=== PATIENT | female | born 1995 | race Caucasian/White ===

== ENCOUNTER 2020-03-19 17:36 | Emergency (ER) | payer OTHER, SELFPAY ==
--- NOTE | 2020-03-19 17:44 | DI.RAD.S_ITS ---
PROCEDURE: XR KNEE RT 1TO2V INDICATIONS: heard a pop unable to bear weight TECHNIQUE: 2 views of the knee were acquired. COMPARISON: None. FINDINGS: Bones: No fractures or dislocations. No suspicious bony lesions. Soft tissues: No joint effusion. No suspicious soft tissue calcifications. IMPRESSION: No acute right knee fracture or dislocation. No joint effusion. Dictated by: Carlos Mares M.D. on 03/19/2020 at 17:25 Approved by: Carlos Mares M.D. on 03/19/2020 at 17:25
--- NOTE | 2020-03-19 19:57 | ED_ITS ---
HPI - Extremity Injury (Lower) <RITIKA Govea - Last Filed: 03/19/20 22:08> General Chief Complaint: Extremity Injury, Lower Stated Complaint: RIGHT KNEE INJURY Time Seen by Provider: 03/19/20 19:47 Source: patient Mode of arrival: Wheelchair History of Present Illness HPI Narrative: 24yo female presents emergency department for right knee pain. Patient states a few weeks ago she injured her knee on an aircraft and was diagnosed with an MCL sprain versus tear. She states last night she went to stand up and heard a pop in her knee and her knee gave out. She reports increased pain. Patient states she is unable to bear weight due to pain, straightening and bending her knee cause significant pain. She reports some swelling. Denies any trauma to the knee, hip pain, ankle pain, past surgeries, nausea, vomiting, diarrhea, or any other concerns. Review of Systems <RITIKA Govea - Last Filed: 03/19/20 22:08> Review of Systems Narrative: REVIEW OF SYSTEMS: GENERAL: Denies fever or chills. HENT: No head trauma. CARDIOVASCULAR: No chest pain. RESPIRATORY: No cough. GASTROINTESTINAL: No nausea. MUSCULOSKELETAL: Complains of right knee pain, see HPI. INTEGUMENTARY: No rash, lesions, or pruritus. NEURO: No numbness, tingling. PSYCH: No behavior or mood changes. Patient History <RITIKA Govea - Last Filed: 03/19/20 22:08> Medical History No significant medical problems (Acute) Social History Smoking Status: Never smoker Smoking Status: Never smoker Exam <RITIKA Govea - Last Filed: 03/19/20 22:08> Initial Vital Signs Initial Vital Signs: PHYSICAL EXAMINATION: GENERAL: Well groomed, alert, and cooperative. Answers questions promptly and appropriately. Vital signs noted. HENT: Normocephalic, atraumatic. EYES: Symmetrical, sclera white, no periorbital swelling. CARDIOVASCULAR: Regular rate. RESPIRATORY: Normal respiratory rate, trachea midline, airway patent. No stridor, nasal flaring or accessory muscle use. MUSCULOSKELETAL: Tenderness to palpation of right patella, negative drawer sign, pain with stress on MCL, small effusion noted. No significant erythema, decreased extension and flexion due to pain. Normal gait and coordination. Equal tone and mass bilaterally. EXTREMITIES: CMS intact. No pedal edema. SKIN: Warm, dry, soft, appropriate color for ethnicity. No lesions, rashes, or wounds. NEURO: Alert and Oriented X 3. No sensory deficits. PSYCH: Appropriate affect and mood. Course <RITIKA Govea - Last Filed: 03/19/20 22:08> Orders Ordered: ED Orders 03/19/20 17:44 XR knee RT 1to2V Stat Discontinued Medications Ketorolac Tromethamine (Toradol) 30 mg IM NOW ONE Stop: 03/19/20 19:56 Last Admin: 03/19/20 20:02 Dose: 30 mg Documented by: MABEL <Blayne Huynh DO - Last Filed: 03/19/20 22:20> Orders Ordered: ED Orders 03/19/20 17:44 XR knee RT 1to2V Stat Discontinued Medications Ketorolac Tromethamine (Toradol) 30 mg IM NOW ONE Stop: 03/19/20 19:56 Last Admin: 03/19/20 20:02 Dose: 30 mg Documented by: MABEL MDM - Extremity Injury (Lower) <RITIKA Govea - Last Filed: 03/19/20 22:08> Medical Records Attestation: I reviewed the patient's medical records. Lab Data Attestation: I reviewed the patient's lab results. Imaging Data Extremity x-ray #1: Radiologist's Impression: [address] [address] XRay Report Signed Patient: Debbie Claire PMR#: [id number] : 1995Acct:[id number] Age/Sex: 24 / FDate of Service: 03/19/20 Loc: ED Accession Number: [id number] Procedure: XR knee RT 1to2V Ordering Provider: Blayne Huynh D.O. PROCEDURE: XR KNEE RT 1TO2V INDICATIONS: heard a pop unable to bear weight TECHNIQUE: 2 views of the knee were acquired. COMPARISON: None. FINDINGS: Bones: No fractures or dislocations. No suspicious bony lesions. Soft tissues: No joint effusion. No suspicious soft tissue calcifications. IMPRESSION: No acute right knee fracture or dislocation. No joint effusion. Dictated by: Carlos Mares M.D. on 03/19/2020 at 17:25 Approved by: Carlos Mares M.D. on 03/19/2020 at 17:25 [facility] Narrative Medical decision making narrative: History and examination concerning for right knee injury. Differential includes meniscus injury versus ligament injury. Less likely fracture given negative x-ray. Less likely infection, lack of erythema or swelling. Brace given, crutches offered, patient declined at this time as she states she has them at home. Return precautions given for new or worsening symptoms. Patient agreed to plan of care verbalized understanding. Discharge Plan Departure Patient Disposition: Home Clinical Impression: Injury of knee Qualifiers: Encounter type: initial encounter Laterality: right Qualified Code(s): S89.91XA - Unspecified injury of right lower leg, initial encounter Discharge Date/Time: 03/19/20 20:11 Instructions: Meniscal Tear Activity Restrictions/Additional Instructions: Thank you for entrusting me with your care today. As discussed, your x-rays negative for any fractures. We have given you a brace, I suggest wearing this brace for a brace with a hinged to prevent your knee from giving out. Each time your knee gives out a can cause more damage. Please follow-up with orthopedic listed below, call tomorrow to schedule an appointment as further evaluation testing is indicated. Return emergency department for any new or worsening symptoms such as chest pain, syncope, high fevers, or any other concerns. Referrals: Crispin Massey MD [Physician] - <Blayne Huynh DO - Last Filed: 03/19/20 22:20> [facility] Dr Huynh Co-Sign Statement: I was available for consultation during this patient's emergency department visit. This chart is signed by myself for administrative purposes only. I did not have direct contact with this patient during this visit. They were seen independently by the APC.
[2020-03-19] MEDS: KETOROLAC 60 MG/2 ML VIAL 30 MG IM (20:02)
== END 2020-03-19 20:11 | disposition home or self-care (01) ==
PROVIDERS: Emergency Provider Nurse Practitioner
DX: S89.91XA Unspecified injury of right lower leg, initial encounter (principal); X50.0XXA Overexertion from strenuous movement or load, initial encounter
CPT/HCPCS: 73560; 96372; 99283; 99284; J1885

== ENCOUNTER 2021-08-17 13:15 | Emergency (ER) | payer OTHER, SELFPAY ==
--- NOTE | 2021-08-17 13:30 | DI.RAD.S_ITS ---
PROCEDURE: XR KNEE RT 3V INDICATIONS: injury TECHNIQUE: 3 views of the knee were acquired. COMPARISON: [facility], CR, XR KNEE RT 1TO2V, 03/19/2020, 18:05. FINDINGS: Bones: No fractures or dislocations. No suspicious bony lesions. Soft tissues: Small joint effusion. No suspicious soft tissue calcifications. IMPRESSION: Right knee without acute fracture or dislocation. Small joint effusion. If there are persistent symptoms or clinical suspicion for pathology, then repeat radiographs or advanced imaging (CT or MRI) may be considered for further evaluation. Dictated by: John Richmond M.D. on 08/17/2021 at 13:26 Approved by: John Richmond M.D. on 08/17/2021 at 13:28
[2021-08-17 13:40] VITALS: BP 116/61; PULSE 94; RESP 18; TEMP 37.1; O2SAT 96; BMI 28.1
--- NOTE | 2021-08-17 13:55 | PC.NURSE ---
Patient reports patellar dislocation in December 2021; repeat injury when stepping onto Right leg on Wednesday, then again tweaked it Wednesday when stepping out of a vehicle.
--- NOTE | 2021-08-17 14:19 | ED_ITS ---
HPI - Extremity Injury (Lower) <Olu Anderson PA-C - Last Filed: 08/17/21 19:37> General Chief Complaint: Extremity Injury, Lower Stated Complaint: Right knee injury. hx of reoccuring injuries Time Seen by Provider: 08/17/21 13:43 Source: patient Mode of arrival: Family Vehicle History of Present Illness HPI Narrative: Patient is a 26-year-old female presenting to the emergency department today for evaluation right knee pain. Patient states that she frequently experiences recurring injuries to the right knee dating back to February of 2020. She states that back in February 2020 she injured her right knee on aircraft and was diagnosed with an MCL sprain versus tear. She states that since that time she has experienced consistent discomfort in the right knee. Patient explains that 2 days ago she was getting out of her boyfriend's truck when she felt her right knee give way, stating that she experienced a similar episode yesterday as well. She states that she attempted to apply ice to the painful area and took her usual medications including meloxicam and an unspecified muscle relaxer. However, her symptoms not improved. She denies fever, chills, chest pain, cough, shortness of breath, nausea, vomiting, diarrhea, abdominal pain, dysuria, hematuria, or any other concerning symptoms. No further concerns were reported at this time. Related Data Previous Rx's Medication Instructions Recorded oxycodone 5 mg capsule 5 mg PO DAILY #10 cap 08/17/21 Allergies Allergy/AdvReac Type Severity Reaction Status Date / Time iodine Allergy Verified 08/17/21 13:39 Review of Systems <Olu Anderson PA-C - Last Filed: 08/17/21 19:37> Constitutional Constitutional: Denies chills, Denies fatigue, Denies fever(s), Denies frequent falls, Denies lethargy and Denies weakness Eyes Eyes: Denies loss of vision ENT Ears, Nose, Mouth, and Throat: Denies dizziness and Denies neck pain Cardiovascular Cardiovascular: Denies chest pain, Denies irregular heart rhythm, Denies lightheadedness, Denies palpitations, Denies dyspnea, Denies dyspnea on exertion and Denies orthopnea Respiratory Respiratory: Denies cough, Denies dyspnea, Denies dyspnea on exertion and Denies wheezing Gastrointestinal Gastrointestinal: Denies abdominal pain, Denies change in bowel habits, Denies diarrhea, Denies nausea and Denies vomiting Genitourinary Genitourinary: Denies hematuria, Denies flank pain, Denies urinary incontinence and Denies urinary urgency Musculoskeletal Musculoskeletal: Denies back pain, Reports arthralgias (Right knee), Denies muscle weakness, Denies neck pain, Denies numbness and Denies tingling Integumentary/Breasts Skin/Breast: Denies pruritus, Denies erythema, Denies rash and Denies wounds Neurologic Neurologic: Denies behavioral changes, Denies confusion, Denies dizziness, Denies frequent falls, Denies loss of vision, Denies numbness, Denies tingling and Denies weakness Psychiatric Psychiatric: Denies behavioral changes and Denies confusion Endocrine Endocrine: Denies fatigue and Denies palpitations Allergic/Immunologic Allergic/Immunologic: Denies wheezing Patient History <Olu Anderson PA-C - Last Filed: 08/17/21 19:37> Medical History (Updated 08/17/21 @ 14:54 by Olu Anderson PA-C) No significant medical problems Social History Smoking Status: Current every day smoker Smoking Status: Current every day smoker tobacco type: e-cigarettes alcohol intake frequency: 0-2 drinks per day Substance Use Type: does not use Exam <Olu Anderson PA-C - Last Filed: 08/17/21 19:37> Narrative Exam Narrative: GENERAL: 26 year old patient appears stated age. Well-developed patient, in mild distress. HEAD: Atraumatic. Normocephalic. EYES: Pupils equal round and reactive. Extraocular motions intact. No scleral icterus. No injection or drainage. ENT: Nose without bleeding, purulent drainage. Throat without erythema, tonsillar hypertrophy or exudate. Airway patent. NECK: Trachea midline. Non tender CARDIOVASCULAR: Regular rate and rhythm without murmurs, gallops, or rubs. RESPIRATORY: Clear to auscultation. Breath sounds equal bilaterally. No wheezes, rales, or rhonchi. GASTROINTESTINAL: Abdomen soft, non-tender, nondistended. EXTREMITIES: No edema. Tenderness to palpation appreciated generally about the right knee without significant swelling. Tenderness to palpation appreciated directly over the patella. Midline knee joint tenderness appreciated on the right, medial greater than lateral. No appreciable popliteal fullness bilaterally. Good sensation light touch appreciated throughout the bilateral lower extremities. Gross motor function intact throughout the bilateral lower extremities. BACK: Nontender without deformity or crepitance. No flank tenderness. NEURO: AOx3. SKIN: No rash or erythema of visible areas Initial Vital Signs Initial Vital Signs: Vital Signs Temperature 98.8 F 08/17/21 13:40 Pulse Rate 94 H 08/17/21 13:40 Respiratory Rate 18 08/17/21 13:40 Blood Pressure 116/61 08/17/21 13:40 Pulse Oximetry 96 08/17/21 13:40 <Anna Ballesteros DO - Last Filed: 08/18/21 07:35> Initial Vital Signs Initial Vital Signs: Vital Signs Temperature 98.8 F 08/17/21 13:40 Pulse Rate 94 H 08/17/21 13:40 Respiratory Rate 18 08/17/21 13:40 Blood Pressure 116/61 08/17/21 13:40 Pulse Oximetry 96 08/17/21 13:40 Course <Olu Anderson PA-C - Last Filed: 08/17/21 19:37> Course Course Narrative: X-ray of right knee obtained. Patient states that she is feeling improved following 5 mg of oral oxycodone on re-evaluation. Orders Ordered: Discontinued Medications Oxycodone HCl (Oxycodone Ir 5 Mg Tablet) 5 mg PO NOW ONE Stop: 08/17/21 14:18 Last Admin: 08/17/21 14:32 Dose: 5 mg Documented by: RORY Vital Signs Vital signs: Vital Signs - 8 hr 08/17/21 13:40 Temperature 98.8 F Pulse Rate 94 H Respiratory Rate 18 Blood Pressure 116/61 Pulse Oximetry 96 <Anna Ballesteros DO - Last Filed: 08/18/21 07:35> Orders Ordered: Discontinued Medications Oxycodone HCl (Oxycodone Ir 5 Mg Tablet) 5 mg PO NOW ONE Stop: 08/17/21 14:18 Last Admin: 08/17/21 14:32 Dose: 5 mg Documented by: RORY Vital Signs Vital signs: Vital Signs - 8 hr 08/17/21 13:40 Temperature 98.8 F Pulse Rate 94 H Respiratory Rate 18 Blood Pressure 116/61 Pulse Oximetry 96 MDM - Extremity Injury (Lower) <Olu Anderson PA-C - Last Filed: 08/17/21 19:37> Imaging Data Extremity x-ray #1: Radiologist's Impression: PROCEDURE:? XR KNEE RT 3V ? INDICATIONS:? injury ? TECHNIQUE:? 3 views of the knee were acquired.? ? COMPARISON:? [facility], CR, XR KNEE RT 1TO2V, 03/19/2020, 18:05. ? FINDINGS:? ? Bones:? No fractures or dislocations.? No suspicious bony lesions.? ? Soft tissues:? Small joint effusion.? No suspicious soft tissue calcifications.? ? ? IMPRESSION:? Right knee without acute fracture or dislocation.? Small joint effusion. ? If there are persistent symptoms or clinical suspicion for pathology, then repeat radiographs or advanced imaging (CT or MRI) may be considered for further evaluation. ? ? Dictated by: John Richmond M.D. on 08/17/2021 at 13:26 ? ? Approved by: John Richmond M.D. on 08/17/2021 at 13:28 MDM Narrative Medical decision making narrative: Differential diagnosis to consider but not limited to fracture versus dislocation versus sprain versus strain versus meniscus tear versus ligament rupture. Overall, x-ray imaging obtained in the emergency department today did not show any signs of acute abnormality that would require emergent intervention. I discussed findings of x-ray with patient informed her that it is important to follow-up with an central melt specialist for further imaging of the right knee. I agreed to prescribe the patient a short course of medications to help alleviate her pain. She states at this time she feels comfortable being discharged home and is stable for discharge. Strict return precautions discussed with patient prior to discharge. Discharge Plan Departure Patient Disposition: Home Clinical Impression: Chronic pain of right knee Instructions: DI for Knee Pain Activity Restrictions/Additional Instructions: *You have been diagnosed with chronic right knee pain *What to do: *Please continue to take your regular medications as directed. [ ] New medication prescriptions sent to your pharmacy: [ ] [X] New medication written as a paper prescription - Oxycodone [ ] No new medications given You were evaluated in the emergency department today for right knee pain. X-ray imaging obtained in the emergency department today did not show signs of acute abnormality. I recommend utilizing the knee braces that you have home to prevent further injury or pain. You can also continue to apply ice to the painful area as needed and keep the right lower extremity elevated to reduce inflammation. I prescribed you a short course of medications to help alleviate her discomfort. It is important that he follow up with Orthopedics for further imaging of the knee. Please follow-up with the primary care provider within the next 2-3 days for further evaluation. Please do not hesitate to return to the emergency department if you experience worsening knee pain, swelling of the knee, fever, numbness and tingling in lower extremities, or any other concerning symptoms. *Please follow up with your primary care provider in 2-3 days, call for an appointment. Let them know you were seen in the Emergency Department and that we ask that you be seen in follow up. We will electronically transmit a record of today's note if your PCP is in our system *If you do not have a primary care provider please contact the [facility] Resource line at [phone]. They will ask some questions about your medical history and help get you set up with a doctor in the community. *Return to Emergency Department if you should have any new, worsening or concerning symptoms, such as fever greater than 101 F, shaking chills, worsening pain, persistent vomiting or other bothersome symptoms. Prescriptions: New oxycodone 5 mg capsule 5 mg PO DAILY Qty: 10 0RF Referrals: Madhu Gilbert MD [Physician] - 5-7 days Stand Alone Forms: Work Release Note <Anna Ballesteros DO - Last Filed: 08/18/21 07:35> Cosign ED Attending [facility] Attestation: I was immediately available in the department for consultation. Documentation has been reviewed.
[2021-08-17] MEDS: OXYCODONE IR 5 MG TABLET PO (14:32)
== END 2021-08-17 15:25 | disposition home or self-care (01) ==
PROVIDERS: Emergency Provider Physician Assistant
DX: G89.29 Other chronic pain (principal); M25.561 Pain in right knee
CPT/HCPCS: 73562; 99283

== ENCOUNTER 2021-10-21 18:27 | Emergency (ER) | payer OTHER, SELFPAY ==
[2021-10-21 18:45] VITALS: BP 111/57; PULSE 61; RESP 18; TEMP 36.6; O2SAT 100; BMI 26.2
[2021-10-21 19:53] LABS: Add Manual Diff / Slide Review NO; Basophils Absolute Auto 0 /uL (0-100); Basophils Percent Auto 0.4 % (0-2); Eosinophils Absolute Auto 100 /uL (0-450); Eosinophils Percent Auto 1.1 % (2-4); Hematocrit 41.8 % (36-46); Hemoglobin 14.3 g/dL (12.0-16.0); Lymphocytes Absolute Auto 1700 /uL (1100-4500); Lymphocytes Percent Auto 26.4 % (25-40); Mean Corpuscular HGB Conc 34.2 % (30-36); Mean Corpuscular Hemoglobin 31.5 PG (26-34); Monocytes Absolute Auto 400 /uL (0-900); Monocytes Percent Auto 6.1 % (3-14); Neutrophils Absolute Auto 4200 /uL (1500-7000); Platelet Count 175 X10^3/uL (150-400); Red Blood Cell Count 4.54 X10^6/uL (4.0-5.2); Red Cell Distribution Width 13.2 % (11.6-14.8); White Blood Cell Count 6.3 X10^3/uL (4.5-11.0)
[2021-10-21 20:01] LABS: Alanine Aminotransferase 15 IU/L (<35); Albumin 4.5 g/dL (3.5-5.0); Albumin Globulin Ratio 1.3 (1.0-2.8); Alkaline Phosphatase 51 U/L (38-126); BUN Creatinine Ratio 15.3 (6-22); Bilirubin Total 1.2 mg/dL (0.2-1.3); Blood Urea Nitrogen 9 mg/dL (7-17); Calcium 8.4 mg/dL (8.4-10.2); Carbon Dioxide 24 mmol/L (22-32); Chloride 106 mmol/L (98-107); Estimated Glomerular Filt Rate > 60 mL/min (>60); Globulin 3.4 g/dL (1.7-4.1); Glucose 80 mg/dL (70-100); Lipase 77 U/L (23-300); Sodium 139 mmol/L (137-145); Total Protein 7.9 g/dL (6.3-8.2)
[2021-10-21 20:02] LABS: HEMOLYSIS 243 (0-50)
--- NOTE | 2021-10-21 22:00 | PC.NURSE ---
no active n/v/d upon arrival pt aao x 3 in nad
[2021-10-21 22:07] VITALS: PULSE 66; O2SAT 98
[2021-10-21 22:10] VITALS: BP 114/62; PULSE 67; O2SAT 100
[2021-10-21 22:25] LABS: COVID19 -Nasal RAPID Negative (Negative)
[2021-10-21 22:30] VITALS: BP 107/63; PULSE 66; O2SAT 100
--- NOTE | 2021-10-21 22:44 | ED_ITS ---
HPI - Nausea/Vomiting/Diarrhea General Chief complaint: Nausea/Vomiting/Diarrhea Stated complaint: EXPOSED TO COVID DIARRHEA HARD TIME BREATHING Time Seen by Provider: 10/21/21 22:44 Source: patient Mode of arrival: Ambulatory Limitations: no limitations History of Present Illness HPI Narrative: This is a 26-year-old female who comes emergency department complaint of nausea, vomiting and diarrhea for the past 30+ hours. Patient has had some fevers and chills. Some shortness of breath sensation. Describes some abdominal discomfort sort of suprapubically and in the left upper quadrant. Patient denies any back or flank pain. No dysuria urgency or frequency. No vaginal bleeding or discharge. Patient has not had any black or bloody stools. They do note that they had a co-worker that had respiratory symptoms that tested positive yesterday for coronavirus. Patient states they are otherwise healthy they do take medication for mood. Denies any major surgeries besides a biopsy of the toe for treatment of foot fungus. Related Data Previous Rx's Medication Instructions Recorded oxycodone 5 mg capsule 5 mg PO DAILY #10 cap 08/17/21 cephalexin 500 mg capsule 500 mg PO BID #10 cap 10/21/21 ondansetron 4 mg disintegrating 4 mg PO Q6H PRN #5 tab 10/21/21 tablet Allergies Allergy/AdvReac Type Severity Reaction Status Date / Time iodine Allergy Verified 08/17/21 13:39 Review of Systems Review of Systems ROS Unobtainable: All systems reviewed & are unremarkable except as noted in HPI and below Patient History Medical History (Updated 10/21/21 @ 23:40 by Anna Ballesteros DO) No significant medical problems Social History Smoking Status: Current every day smoker Smoking Status: Current every day smoker tobacco type: e-cigarettes alcohol intake frequency: 0-2 drinks per day Substance Use Type: does not use Exam Narrative Exam Narrative: GENERAL: Alert and oriented x three, female in mild distress. HEENT: Head normocephalic, atraumatic, EOMI, pupils reactive, face symmetric, moist mucous membranes NECK: Supple, full range of motion CARDIOVASCULAR: Regular rate and rhythm without murmurs, rubs or gallops. RESPIRATORY: Breath sounds equal bilaterally, no wheezes rales or rhonchi. ABDOMEN: Soft, mild generalized tenderness.Normoactive bowel sounds all 4 quadrants. No guarding or rebound, rigidity, no mass. : No CVA tenderness EXTREMITIES: Normal range of motion, no clubbing or edema. Neurovascularly intact NEUROLOGICAL: Cranial nerves II through XII grossly intact. Moving all extremities SKIN: Warm, dry, no petechiae, no rashes or lesions. Initial Vital Signs Initial Vital Signs: Vital Signs Temperature 97.8 F 10/21/21 18:45 Pulse Rate 61 10/21/21 18:45 Respiratory Rate 18 10/21/21 18:45 Blood Pressure 111/57 L 10/21/21 18:45 Pulse Oximetry 100 10/21/21 18:45 Course Orders Ordered: ED Orders 10/21/21 19:15 Complete Blood Count AUTO DIFF Stat Comprehensive Metabolic Panel Stat Lipase Stat 10/21/21 22:07 COVID19 -Nasal RAPID/Pre-Proc Stat 10/21/21 22:55 Urine Culture Stat Urine Microscopic Stat Discontinued Medications Cephalexin HCl (Cephalexin 250 Mg Capsule) 500 mg PO NOW ONE Stop: 10/21/21 23:41 Last Admin: 10/21/21 23:45 Dose: 500 mg Documented by: BILL Ketorolac Tromethamine (Ketorolac 30 Mg/Ml Vial) 15 mg IV NOW ONE Stop: 10/21/21 23:04 Last Admin: 10/21/21 23:10 Dose: 15 mg Documented by: BILL Ondansetron HCl (Ondansetron 4 Mg/2 Ml Inj) 4 mg IV NOW ONE Stop: 10/21/21 23:04 Last Admin: 10/21/21 23:10 Dose: 4 mg Documented by: BILL Ondansetron HCl (Ondansetron 4 Mg Odt) 4 mg SL NOW ONE Stop: 10/21/21 23:41 Last Admin: 10/21/21 23:45 Dose: 4 mg Documented by: BILL Vital Signs Vital signs: Vital Signs - 8 hr 10/21/21 22:07 10/21/21 22:10 10/21/21 22:30 Pulse Rate 66 67 66 Respiratory Rate Blood Pressure 114/62 107/63 Pulse Oximetry 98 100 100 10/21/21 23:00 10/21/21 23:30 Pulse Rate 63 52 L Respiratory Rate 16 Blood Pressure 109/52 L Pulse Oximetry 98 97 MDM - Nausea/Vomiting/Diarrhea Lab Data Result diagrams: 10/21/21 19:15 10/21/21 19:15 Labs: Lab Results 10/21/21 10/21/21 10/21/21 Range/Units 19:15 19:15 22:07 WBC 6.3 (4.5-11.0) X10^3/uL RBC 4.54 (4.0-5.2) X10^6/uL Hgb 14.3 (12.0-16.0) g/dL Hct 41.8 (36-46) % MCV 92.0 (80-100) fL MCH 31.5 (26-34) PG MCHC 34.2 (30-36) % RDW 13.2 (11.6-14.8) % Plt Count 175 (150-400) X10^3/uL Neut % (Auto) 66.0 (50-75) % Lymph % (Auto) 26.4 (25-40) % [place] % (Auto) 6.1 (3-14) % Eos % (Auto) 1.1 L (2-4) % Baso % (Auto) 0.4 (0-2) % Neut # (Auto) 4200 (0571-4886) /uL Lymph # (Auto) 1700 (8914-0768) /uL [place] # (Auto) 400 (0-900) /uL Eos # (Auto) 100 (0-450) /uL Baso # (Auto) 0 (0-100) /uL Sodium 139 (137-145) mmol/L Potassium TNP Chloride 106 (98-107) mmol/L Carbon Dioxide 24 (22-32) mmol/L BUN 9 (7-17) mg/dL Creatinine 0.59 (0.52-1.04) mg/dL Estimated GFR > 60 (>60) mL/min BUN/Creatinine Ratio 15.3 (6-22) Glucose 80 (70-100) mg/dL Calcium 8.4 (8.4-10.2) mg/dL Total Bilirubin 1.2 (0.2-1.3) mg/dL AST TNP ALT 15 (<35) IU/L Alkaline Phosphatase 51 (38-126) U/L Total Protein 7.9 (6.3-8.2) g/dL Albumin 4.5 (3.5-5.0) g/dL Globulin 3.4 (1.7-4.1) g/dL Albumin/Globulin Ratio 1.3 (1.0-2.8) Lipase 77 (23-300) U/L Urine RBC (0-5/HPF) Urine WBC (0-5/HPF) Ur Squamous Epith Cells (0-5/HPF) Urine Bacteria (None) Urine Mucus (Negative) Ur Culture Indicated? SARS-CoV-2 (PCR) Negative (Negative) 10/21/21 Range/Units 22:55 WBC (4.5-11.0) X10^3/uL RBC (4.0-5.2) X10^6/uL Hgb (12.0-16.0) g/dL Hct (36-46) % MCV (80-100) fL MCH (26-34) PG MCHC (30-36) % RDW (11.6-14.8) % Plt Count (150-400) X10^3/uL Neut % (Auto) (50-75) % Lymph % (Auto) (25-40) % [place] % (Auto) (3-14) % Eos % (Auto) (2-4) % Baso % (Auto) (0-2) % Neut # (Auto) (9506-8980) /uL Lymph # (Auto) (7402-5691) /uL [place] # (Auto) (0-900) /uL Eos # (Auto) (0-450) /uL Baso # (Auto) (0-100) /uL Sodium (137-145) mmol/L Potassium Chloride (98-107) mmol/L Carbon Dioxide (22-32) mmol/L BUN (7-17) mg/dL Creatinine (0.52-1.04) mg/dL Estimated GFR (>60) mL/min BUN/Creatinine Ratio (6-22) Glucose (70-100) mg/dL Calcium (8.4-10.2) mg/dL Total Bilirubin (0.2-1.3) mg/dL AST ALT (<35) IU/L Alkaline Phosphatase (38-126) U/L Total Protein (6.3-8.2) g/dL Albumin (3.5-5.0) g/dL Globulin (1.7-4.1) g/dL Albumin/Globulin Ratio (1.0-2.8) Lipase (23-300) U/L Urine RBC None seen (0-5/HPF) Urine WBC 1-5/hpf (0-5/HPF) Ur Squamous Epith Cells 1-5 /hpf (0-5/HPF) Urine Bacteria Many (>30) H (None) Urine Mucus 1+ H (Negative) Ur Culture Indicated? Culture not indicate SARS-CoV-2 (PCR) (Negative) Point of Care Testing Test Results Negative Urine Dip Bedside Urine Glucose Negative Bedside Urine Bilirubin - Negative Bedside Urine Ketone - Negative Urine Specific [place] 1.025 Bedside Urine Occult Blood - Negative Bedside Urine pH 6.0 Bedside Urine Protein - Negative Bedside Urine Urobilinogen - Negative Bedside Urine Nitrite - Negative Bedside Urine Leukocytes +/- 15 Esterase MDM Narrative Medical decision making narrative: This is a 26-year-old female comes emergency department with complaint of shortness of breath and nausea, vomiting and diarrhea. Patient has reassuring exam, labs reviewed. Discussed with patient plan for antinausea medication and re-evaluation within 24 hours if persistent symptoms or worsening abdominal pain. Patient was swab for coronavirus is negative but has had symptoms for just over 24 hours and was recommended to have repeat swab as needed. Patient's urine does show bacteria leukocyte esterase, she has had some frequency but no other symptoms. She has been afebrile. She does not any back or flank pain. She states she does get frequent UTIs so plan for Zofran, oral antibiotic and close follow-up. Discharge Plan Departure Patient Disposition: Home Clinical Impression: Nausea vomiting and diarrhea, UTI (urinary tract infection) Instructions: DI for Vomiting -- Adult Activity Restrictions/Additional Instructions: Follow-up if your symptoms are persisting over the next several days. Your swab for coronavirus today is negative but if this is obtained within the 1st day or so of symptoms can sometimes be a false negative. I would recommend being rechecked if you have persistent symptoms. You may take Zofran 1 tablet every 6 hours as needed for nausea/vomiting. Take antibiotics until completely gone. Prescription sent to [facility] in [employer]. Please return for persistent vomiting, passing out, new chest pain, worsening shortness of breath, black or bloody stools, worsening abdominal pain or other new or concerning symptoms. Prescriptions: New cephalexin 500 mg capsule 500 mg PO BID Qty: 10 0RF ondansetron 4 mg tablet,disintegrating 4 mg PO Q6H PRN (Reason: nausea and vomiting) Qty: 5 0RF No Action oxycodone 5 mg capsule 5 mg PO DAILY Qty: 10 0RF Stand Alone Forms: Work Release Note
[2021-10-21 23:00] VITALS: PULSE 63; O2SAT 98
[2021-10-21] MEDS: ONDANSETRON 4 MG/2 ML INJ IV (23:10)
[2021-10-21] MEDS: KETOROLAC 30 MG/ML VIAL 15 MG IV (23:10)
[2021-10-21 23:15] LABS: Bacteria Urine Many (>30); Mucus Urine 1+ (Negative); RBC Urine None Seen (0-5/HPF); Squamous Epithelial Cell Urine 1-5 /HPF (0-5/HPF); WBC Urine 1-5/HPF (0-5/HPF)
[2021-10-21 23:30] VITALS: BP 109/52; PULSE 52; RESP 16; O2SAT 97
[2021-10-21] MEDS: ONDANSETRON 4 MG ODT SL (23:45)
[2021-10-21] MEDS: cephALEXin 250 MG CAPSULE 500 MG PO (23:45)
== END 2021-10-21 23:59 | disposition home or self-care (01) ==
PROVIDERS: Emergency Provider Emergency Medicine
DX: R11.2 Nausea with vomiting, unspecified (principal); R19.7 Diarrhea, unspecified; R06.02 Shortness of breath; R10.12 Left upper quadrant pain; N39.0 Urinary tract infection, site not specified; Z20.822 Contact with and (suspected) exposure to COVID-19
CPT/HCPCS: 80053; 81003; 81015; 81025; 83690; 85025; 87086; 87635; 96374; 96375; 99284; C9803; J1885; J2405

== ENCOUNTER 2021-11-19 13:56 | Emergency (ER) | payer OTHER, SELFPAY ==
[2021-11-19 14:24] VITALS: BP 117/72; PULSE 78; RESP 18; TEMP 36.6; O2SAT 100; BMI 26.6
[2021-11-19 15:56] LABS: Bacteria Urine Moderate (10-30); Culture Indicated Urine Specimen Cultured; RBC Urine None Seen (0-5/HPF); Squamous Epithelial Cell Urine 1-5 /HPF (0-5/HPF); WBC Urine 1-5/HPF (0-5/HPF)
--- NOTE | 2021-11-19 17:23 | DI.CT.S_ITS ---
PROCEDURE: CT KIDNEY URETER BLADDER (KUB) INDICATIONS: left flank pain, hx nephrolithiasis, +UTI TECHNIQUE: Axial sections were acquired from the lung bases to the pubic symphysis. Coronal and sagittal reformats were performed. For radiation dose reduction, the following was used: automated exposure control, adjustment of mA and/or kV according to patient size. COMPARISON: [facility], CT, CT KUB, 08/08/2019, 12:46. FINDINGS: Image quality: Excellent. Lung bases: Lung bases are clear. Heart: No significant findings. URINARY: Right Kidney: No stones or hydronephrosis. No perinephric stranding. Right Ureter: No hydroureter. No ureteral stone. Left Kidney: No stones or hydronephrosis. No perinephric stranding. Left Ureter: No hydroureter. No ureteral stone. Bladder: Normal wall thickness. No stones. ABDOMEN: Liver: Unremarkable. Gallbladder: Unremarkable. Biliary ducts: Unremarkable. Pancreas: Unremarkable. No peripancreatic inflammation. Spleen: Unremarkable. Adrenal Glands: Unremarkable. Stomach and Bowel: Stomach, small bowel loops, and colon are unremarkable. Normal appendix. Peritoneum: No abnormal intraperitoneal fluid. No free air. Ventral Wall: No hernia. Abdominal Nodes: No enlarged retroperitoneal or mesenteric lymph nodes. Vessels: Aorta and inferior vena cava are normal in size. PELVIS: Pelvic Organs: Unremarkable. An IUD is noted within the endometrial cavity. Pelvic Nodes: Unremarkable. Miscellaneous: No inguinal hernias are seen. Bones: Unremarkable. IMPRESSION: CT abdomen and pelvis without acute abnormalities. Specifically, no evidence for urolithiasis or obstructive uropathy. Normal appendix. Dictated by: John Richmond M.D. on 11/19/2021 at 17:44 Approved by: John Richmond M.D. on 11/19/2021 at 17:49
--- NOTE | 2021-11-19 17:40 | ED_ITS ---
HPI - Female Genitourinary <RITIKA Fisher - Last Filed: 11/19/21 20:54> General Chief complaint: Urogenital-Female Stated complaint: KIDNEY STONES Time Seen by Provider: 11/19/21 17:16 Source: patient Mode of arrival: Ambulatory History of Present Illness HPI Narrative: This is a 26-year-old female who presents to the emergency department for left flank pain since last night. Patient states that she has nausea, denies vomiting, endorses on and off symptoms of dysuria for approximately three weeks but did not have any fever, vomiting, other worsening symptoms. She was seen in the emergency department on 10/21/2021 for nausea vomiting diarrhea and a UTI Keflex, I medication and Zofran and states that she got better but then all of a sudden last night she got worse. She states that she had kidney stones on the left side in 2019, she states this feels similar. She denies any blood in her urine, she denies any diarrhea or stool changes. She denies any history of allergies to antibiotics, only topical iodine. Patient endorses abnormal vaginal discharge and painful intercourse. She has an IUD in place. Related Data Previous Rx's Medication Instructions Recorded oxycodone 5 mg capsule 5 mg PO DAILY #10 cap 08/17/21 cephalexin 500 mg capsule 500 mg PO BID #10 cap 10/21/21 ondansetron 4 mg disintegrating 4 mg PO Q6H PRN #5 tab 10/21/21 tablet fluconazole 150 mg tablet 150 mg PO .q3da PRN #2 tab 11/19/21 metronidazole 500 mg tablet 500 mg PO BID 7 Days #14 tab 11/19/21 sulfamethoxazole 800 1 tab PO BID 7 Days #14 tab 11/19/21 mg-trimethoprim 160 mg tablet (Bactrim DS) Allergies Allergy/AdvReac Type Severity Reaction Status Date / Time iodine Allergy Verified 08/17/21 13:39 Review of Systems <RITIKA Fisher - Last Filed: 11/19/21 20:54> Review of Systems Narrative: General: denies fever, chills Head/Neck: denies headache, neck pain Eyes: denies visual changes, eye pain Cardio: denies chest pain, palpitations Respiratory: denies shortness of breath, cough GI: denies abdominal pain, nausea, vomiting, or diarrhea : Endorses mild dysuria and left flank pain, also endorses abnormal vaginal discharge and dysparenuia MSK: denies new joint pain, muscle weakness or swelling Skin: denies rash, itching or wound Neuro: denies numbness, tingling, dizziness Patient History <RITIKA Fisher - Last Filed: 11/19/21 20:54> Medical History No significant medical problems tobacco type: vaping alcohol intake frequency: 0-2 drinks per day Substance Use Type: does not use Exam <RITIKA Fisher - Last Filed: 11/19/21 20:54> Narrative Exam Narrative: Independently reviewed vitals signs and nursing notes. General: Awake, alert, nontoxic, no cardiorespiratory distress Head/Neck: Atraumatic, neck supple Eyes: EOMI, conjunctiva normal Nose: nares patent, no rhinorrhea Mouth/Throat: moist mucus membranes, posterior pharynx without erythema or lesion Cardio: Regular rate and rhythm, no peripheral edema Respiratory: respirations unlabored without wheezing, stridor, or rales. No re tractions, hypoxia or tachypnea GI: Abdomen soft, nontender to palpation x4 quadrants, no guarding or rebound tenderness, left CVA tenderness to palpation : Patient with pelvic pain while obtaining wet mount, no open wound, or rash MSK: Moves all extremities, neurovascularly intact, range of motion without deficit, left CVA tenderness to palpation Skin: Normal capillary refill, no rash Neuro: Normal speech and cognition, normal gait Initial Vital Signs Initial Vital Signs: Vital Signs Temperature 97.8 F 11/19/21 14:24 Pulse Rate 78 11/19/21 14:24 Respiratory Rate 18 11/19/21 14:24 Blood Pressure 117/72 11/19/21 14:24 Pulse Oximetry 100 11/19/21 14:24 <Anna Ballesteros DO - Last Filed: 11/20/21 20:09> Initial Vital Signs Initial Vital Signs: Vital Signs Temperature 97.8 F 11/19/21 14:24 Pulse Rate 78 11/19/21 14:24 Respiratory Rate 18 11/19/21 14:24 Blood Pressure 117/72 11/19/21 14:24 Pulse Oximetry 100 11/19/21 14:24 Course <RITIKA Fisher - Last Filed: 11/19/21 20:54> Orders Ordered: Discontinued Medications Ketorolac Tromethamine (Ketorolac 30 Mg/Ml Vial) 15 mg IM NOW ONE Stop: 11/19/21 17:54 Last Admin: 11/19/21 18:35 Dose: 15 mg Documented by: KBROTEM Vital Signs Vital signs: Vital Signs - 8 hr 11/19/21 14:24 11/19/21 18:50 Temperature 97.8 F 98.2 F Pulse Rate 78 72 Respiratory Rate 18 16 Blood Pressure 117/72 120/73 Pulse Oximetry 100 100 <Anna Ballesteros DO - Last Filed: 11/20/21 20:09> Orders Ordered: Discontinued Medications Ketorolac Tromethamine (Ketorolac 30 Mg/Ml Vial) 15 mg IM NOW ONE Stop: 11/19/21 17:54 Last Admin: 11/19/21 18:35 Dose: 15 mg Documented by: KBROTEM Vital Signs Vital signs: Vital Signs - 8 hr 11/19/21 14:24 11/19/21 18:50 Temperature 97.8 F 98.2 F Pulse Rate 78 72 Respiratory Rate 18 16 Blood Pressure 117/72 120/73 Pulse Oximetry 100 100 MDM - Female Genitourinary <RITIKA Fisher - Last Filed: 11/19/21 20:54> Lab Data Labs: Lab Results 11/19/21 11/19/21 Range/Units 14:28 14:28 Urine RBC None seen (0-5/HPF) Urine WBC 1-5/hpf (0-5/HPF) Ur Squamous Epith Cells 1-5 /hpf (0-5/HPF) Urine Bacteria Moderate (10-30) H (None) Ur Culture Indicated? Specimen cultured Ur Chlamydia DNA (PCR) Not detected N gonorrhoeae DNA (PCR) Not detected Point of Care Testing Test Results Negative Urine Dip Bedside Urine Glucose Negative Bedside Urine Bilirubin - Negative Bedside Urine Ketone - Negative Urine Specific [place] 1.015 Bedside Urine Occult Blood - Negative Bedside Urine pH 7.0 Bedside Urine Protein - Negative Bedside Urine Urobilinogen 0.2 Bedside Urine Nitrite - Negative Bedside Urine Leukocytes + [address] scan - abdomen/pelvis: Radiologist's Impression: PROCEDURE:? CT KIDNEY URETER BLADDER (KUB) ? INDICATIONS:? left flank pain,? hx nephrolithiasis, +UTI ? TECHNIQUE:? Axial sections were acquired from the lung bases to the pubic symphysis.? Coronal and sagittal reformats were performed.? For radiation dose reduction, the following was used: ?automated exposure control, adjustment of mA and/or kV according to patient size.? ? COMPARISON:? [facility], CT, CT KUB, 08/08/2019, 12:46. ? FINDINGS:? Image quality:? Excellent.? ? Lung bases:? Lung bases are clear. Heart:? No significant findings. ? URINARY: Right Kidney:? No stones or hydronephrosis.? No perinephric stranding. Right Ureter:? No hydroureter.? No ureteral stone. ? Left Kidney:? No stones or hydronephrosis.? No perinephric stranding. Left Ureter:? No hydroureter.? No ureteral stone. ? Bladder:? Normal wall thickness. No stones. ? ? ? ABDOMEN: Liver:? Unremarkable.? ? Gallbladder:? Unremarkable.? ? Biliary ducts:? Unremarkable.? ? Pancreas:? Unremarkable.? No peripancreatic inflammation. ? Spleen:? Unremarkable.? ? Adrenal Glands:? Unremarkable.? ? ? Stomach and Bowel:? Stomach, small bowel loops, and colon are unremarkable.? Normal appendix. Peritoneum:? No abnormal intraperitoneal fluid.? No free air.? ? Ventral Wall: ? No hernia.? Abdominal Nodes:? No enlarged retroperitoneal or mesenteric lymph nodes.? Vessels:? Aorta and inferior vena cava are normal in size.? ? PELVIS: Pelvic Organs:? Unremarkable.? An IUD is noted within the endometrial cavity.? Pelvic Nodes: Unremarkable. Miscellaneous: No inguinal hernias are seen. ? ? ? Bones:? Unremarkable.? ? IMPRESSION:? ? CT abdomen and pelvis without acute abnormalities.? Specifically, no evidence for urolithiasis or obstructive uropathy.? Normal appendix. ? ? ? Dictated by: John Richmond M.D. on 11/19/2021 at 17:44 ? ? Approved by: John Richmond M.D. on 11/19/2021 at 17:49 ? MDM Narrative Medical decision making narrative: This is a 26-year-old female presents to the emergency department complaining of left flank pain since last night with nausea. She states that she was seen in the emergency department approximately one month ago for nausea vomiting diarrhea and diagnosed with the UTI, she completed 10 days of Keflex and states that her symptoms have returned. She also endorses abnormal vaginal discharge. UA today shows, no rbc's or wbc's, wound culture is pending. Any nephrolithiasis, urolithiasis, or obstructive uropathy. She also has a normal appendix on CT KUB with an IUD within the endometrial cavity. Cells and few white blood cells. Patient was treated with metronidazole for bacterial vaginosis and Bactrim for complicated UTI x7 days. Patient has had antibiotics within the last 30 days. She was also prescribed fluconazole for any yeast if she develops a yeast infection during her antibiotic treatment. Urine gonorrhea and chlamydia was ordered, this is pending and I will follow-up on this tonight. Patient understands to return to the emergency department for any new or worsening symptoms, she states that she had a pelvic ultrasound couple days ago which did not have any abnormality but it was very painful, she also endorses dysparenuia. No peritoneal signs on abdominal exam. Patient remains p.o. tolerant. Serial abdominal exam without increase in abdominal pain. Given history and exam, low suspicion for acute abdominal process, such as acute cholecystitis, pancreatitis, perforated viscus, atypical appendicitis, colitis, diverticulitis or torsion. Extensive conversation about ER return precautions and need for close follow-up. Patient is appropriate and amenable to discharge home. Vital signs are stable on repeat examination is unremarkable. Patient has been informed of results. Patient has been given strict return to ER precautions for any new or worsening symptoms. Patient understands to follow up closely with outpatient providers as instructed. Patient understands plan and agrees to discharge home. All questions and concerns answered at this time. Urine gonorrhea and chlamydia were both negative. <Anna Ballesteros, DO - Last Filed: 11/20/21 20:09> Lab Data Labs: Lab Results 11/19/21 11/19/21 Range/Units 14:28 14:28 Urine RBC None seen (0-5/HPF) Urine WBC 1-5/hpf (0-5/HPF) Ur Squamous Epith Cells 1-5 /hpf (0-5/HPF) Urine Bacteria Moderate (10-30) H (None) Ur Culture Indicated? Specimen cultured Ur Chlamydia DNA (PCR) Not detected N gonorrhoeae DNA (PCR) Not detected Point of Care Testing Test Results Negative Urine Dip Bedside Urine Glucose Negative Bedside Urine Bilirubin - Negative Bedside Urine Ketone - Negative Urine Specific [place] 1.015 Bedside Urine Occult Blood - Negative Bedside Urine pH 7.0 Bedside Urine Protein - Negative Bedside Urine Urobilinogen 0.2 Bedside Urine Nitrite - Negative Bedside Urine Leukocytes + 70 Esterase Discharge Plan Departure Patient Disposition: Home Clinical Impression: Urinary tract infection, Bacterial vaginosis Instructions: Bacterial Vaginosis, DI for Kidney Infection Activity Restrictions/Additional Instructions: *You have been diagnosed with a complicated urinary tract infection which means it likely got into your kidney. Your CT does not show any kidney stone what soever anywhere, your IUD is within the right place, no evidence of stones or any obstructive stones, your appendix also looks normal. This is most likely a complicated UTI. Your vaginal wet prep was positive with clue cells, this is usually a bacterial vaginosis infection. And likely why you have been having pelvic pain. I have ordered a gonorrhea and chlamydia, this is also pending, we will call you if it is positive. Please take Flagyl twice a day for the next seven days, this will treat the bacterial vaginosis, if your partner does not have any symptoms, they do not need any treatment. Please take your oral antibiotic for the next seven days. If you start having itching or symptoms of a yeast infection, please take a fluconazole, this will hopefully get rid of the yeast, there is no yeast in your vaginal secretions today. You could also use [id number] medications for yeast infection if you develop one. It is common with this antibiotic to get a yeast infection. *What to do: *Please continue to take your regular medications as directed. [ x] New medication prescriptions sent to your pharmacy: [[facility]] [ ] New medication written as a paper prescription [ ] No new medications given *Please follow up with your primary care provider in 2-3 days, call for an appointment. Let them know you were seen in the Emergency Department and that we asked that you be seen for follow-up. We will electronically transmit a record of today's note if your PCP is in our system *If you do not have a primary care provider please contact [phone] to establish care with one of [facility] primary care providers. *Return to Emergency Department if you should have any new, worsening or concerning symptoms, such as [fever greater than 101F, chills, worsening pain, persistent vomiting or other bothersome symptoms] Prescriptions: New sulfamethoxazole-trimethoprim [Bactrim DS] 800-160 mg tablet 1 tab PO BID 7 Days Qty: 14 0RF fluconazole 150 mg tablet 150 mg PO .q3da PRN (Reason: yeast infection) Qty: 2 0RF metronidazole 500 mg tablet 500 mg PO BID 7 Days Qty: 14 0RF No Action cephalexin 500 mg capsule 500 mg PO BID Qty: 10 0RF ondansetron 4 mg tablet,disintegrating 4 mg PO Q6H PRN (Reason: nausea and vomiting) Qty: 5 0RF oxycodone 5 mg capsule 5 mg PO DAILY Qty: 10 0RF Stand Alone Forms: Work Release Note Visit Report Forms: Patient Portal/API <Anna Ballesteros DO - Last Filed: 11/20/21 20:09> Cosign ED Attending Laron Attestation: I was immediately available in the department for consultation. Documentation has been reviewed.
[2021-11-19] MEDS: KETOROLAC 30 MG/ML VIAL 15 MG IM (18:35)
[2021-11-19 18:50] VITALS: BP 120/73; PULSE 72; RESP 16; TEMP 36.8; O2SAT 100
[2021-11-19 20:11] LABS: Urine N gonorrhoeae NOT DETECTED
[2021-11-19 20:15] LABS: Urine Chlamydia NOT DETECTED
== END 2021-11-19 18:53 | disposition home or self-care (01) ==
PROVIDERS: Emergency Medicine; Emergency Provider Nurse Practitioner Critical Care Medicine
DX: N39.0 Urinary tract infection, site not specified (principal); N76.0 Acute vaginitis; R11.0 Nausea
CPT/HCPCS: 74176; 81003; 81015; 81025; 87086; 87210; 87491; 87591; 96372; 99283; J1885

== ENCOUNTER 2021-11-24 12:43 | Emergency (ER) | payer OTHER, SELFPAY ==
[2021-11-24 13:59] VITALS: BP 105/58; PULSE 69; RESP 18; TEMP 37; O2SAT 99; BMI 27.3
[2021-11-24 14:53] LABS: Add Manual Diff / Slide Review NO; Basophils Absolute Auto 0 /uL (0-100); Basophils Percent Auto 0.4 % (0-2); Eosinophils Absolute Auto 100 /uL (0-450); Eosinophils Percent Auto 1.3 % (2-4); Hematocrit 39.1 % (36-46); Hemoglobin 13.4 g/dL (12.0-16.0); Lymphocytes Absolute Auto 1300 /uL (1100-4500); Lymphocytes Percent Auto 22.4 % (25-40); Mean Corpuscular HGB Conc 34.2 % (30-36); Mean Corpuscular Hemoglobin 31.4 PG (26-34); Monocytes Absolute Auto 500 /uL (0-900); Monocytes Percent Auto 7.9 % (3-14); Neutrophils Absolute Auto 4000 /uL (1500-7000); Platelet Count 163 X10^3/uL (150-400); Red Blood Cell Count 4.25 X10^6/uL (4.0-5.2); Red Cell Distribution Width 12.5 % (11.6-14.8); White Blood Cell Count 5.9 X10^3/uL (4.5-11.0)
[2021-11-24] MEDS: ONDANSETRON 4 MG/2 ML INJ IV (14:55)
[2021-11-24 15:06] LABS: Alanine Aminotransferase 17 IU/L (<35); Albumin 4.3 g/dL (3.5-5.0); Albumin Globulin Ratio 1.5 (1.0-2.8); Alkaline Phosphatase 58 U/L (38-126); Aspartate Aminotransferase 32 IU/L (14-36); BUN Creatinine Ratio 13.1 (6-22); Bilirubin Total 0.3 mg/dL (0.2-1.3); Blood Urea Nitrogen 14 mg/dL (7-17); Calcium 8.6 mg/dL (8.4-10.2); Carbon Dioxide 26 mmol/L (22-32); Chloride 101 mmol/L (98-107); Estimated Glomerular Filt Rate > 60 mL/min (>60); Globulin 2.9 g/dL (1.7-4.1); Glucose 85 mg/dL (70-100); HEMOLYSIS < 15 (0-50); Sodium 134 mmol/L (137-145); Total Protein 7.2 g/dL (6.3-8.2)
--- NOTE | 2021-11-24 15:36 | DI.CT.S_ITS ---
PROCEDURE: CT ABDOMEN PELVIS WO CON INDICATIONS: ? Nephrolitiasis TECHNIQUE: Axial sections were acquired from the lung bases to the pubic symphysis. Coronal and sagittal reformats were performed. For radiation dose reduction, the following was used: automated exposure control, adjustment of mA and/or kV according to patient size. COMPARISON: [facility], CT, CT KIDNEY URETER BLADDER (KUB), 11/19/2021, 17:25. [facility], CT, CT KUB, 08/08/2019, 12:46. FINDINGS: Image quality: Excellent. Lung bases: Unremarkable. Small hiatal hernia. Heart: No significant findings. URINARY: Right Kidney: No stones or hydronephrosis. Right Ureter: No hydroureter. Left Kidney: There is a 1 mm stone in the superior pole of the left kidney. No hydronephrosis. Left Ureter: No hydroureter. Bladder: Normal wall thickness. No stones. ABDOMEN: Liver: Unremarkable. Gallbladder: Unremarkable. Biliary ducts: Unremarkable. Pancreas: Unremarkable. Spleen: Unremarkable. Adrenal Glands: Unremarkable. Stomach and Bowel: Stomach, small bowel loops, and colon are unremarkable. There is a moderate amount of stool in colon. Peritoneum: No abnormal intraperitoneal fluid. No free air. Ventral Wall: No hernia. Abdominal Nodes: No enlarged retroperitoneal or mesenteric lymph nodes. Vessels: Aorta and inferior vena cava are normal in size. PELVIS: Pelvic Organs: Uterus and ovaries are grossly normal. There is an IUD. Pelvic Nodes: Unremarkable. Miscellaneous: No inguinal hernias are seen. Bones: Unremarkable. IMPRESSION: 1. There is a 1 mm nonobstructive stone in the superior pole of the left kidney. No hydronephrosis. 2. IUD in uterus. Dictated by: Pb Gomez M.D. on 11/24/2021 at 16:22 Approved by: Pb Gomez M.D. on 11/24/2021 at 16:30
[2021-11-24] MEDS: KETOROLAC 30 MG/ML VIAL 15 MG IV (15:53)
[2021-11-24] MEDS: SODIUM CHLORIDE 0.9% 1,000 ML 1000 ML IV (15:54)
[2021-11-24 15:56] LABS: Lipase 62 U/L (23-300)
[2021-11-24 15:57] LABS: Lactate (Lactic Acid) 0.7 mmol/L (0.7-2.1)
--- NOTE | 2021-11-24 17:04 | ED_ITS ---
HPI - Female Genitourinary <Harini Soares PA-C - Last Filed: 11/24/21 20:14> General Chief complaint: Urogenital-Female Stated complaint: Kidney infection worsening since ER visit 11/19 Time Seen by Provider: 11/24/21 14:51 Source: patient Mode of arrival: Ambulatory History of Present Illness HPI Narrative: 26-year-old female with no significant past medical history presents to the ED with left-sided flank pain. Patient states that she was seen in the ED and treated for a UTI last week, following which her flank pain has worsened. Patient endorses chills, nausea, vomiting. Patient denies fever, chest pain, shortness of breath, abdominal pain, dysuria, lightheadedness, dizziness, syncope. Patient has a positive history of kidney stones. Patient had a CT last week with no evidence of kidney stones or other acute findings. Patient states that her pain is aggravated by movement and twisting. Patient denies any trauma. Related Data Previous Rx's Medication Instructions Recorded oxycodone 5 mg capsule 5 mg PO DAILY #10 cap 08/17/21 cephalexin 500 mg capsule 500 mg PO BID #10 cap 10/21/21 ondansetron 4 mg disintegrating 4 mg PO Q6H PRN #5 tab 10/21/21 tablet fluconazole 150 mg tablet 150 mg PO .q3da PRN #2 tab 11/19/21 metronidazole 500 mg tablet 500 mg PO BID 7 Days #14 tab 11/19/21 sulfamethoxazole 800 1 tab PO BID 7 Days #14 tab 11/19/21 mg-trimethoprim 160 mg tablet (Bactrim DS) Allergies Allergy/AdvReac Type Severity Reaction Status Date / Time iodine Allergy Verified 08/17/21 13:39 Review of Systems <Harini Soares PA-C - Last Filed: 11/24/21 20:14> Review of Systems ROS Unobtainable: All systems reviewed & are unremarkable except as noted in HPI and below Constitutional Constitutional: Reports chills, Denies fatigue, Denies fever(s), Denies frequent falls, Denies lethargy and Denies weakness Eyes Eyes: Denies change in vision, Denies eye discharge, Denies irritation and Denies loss of vision ENT Ears, Nose, Mouth, and Throat: Denies change in voice, Denies dizziness, Denies neck pain, Denies sore throat and Denies throat swelling Cardiovascular Cardiovascular: Denies chest pain, Denies irregular heart rhythm, Denies lightheadedness, Denies palpitations, Denies dyspnea, Denies dyspnea on exertion and Denies orthopnea Respiratory Respiratory: Denies cough, Denies dyspnea, Denies dyspnea on exertion and Denies wheezing Gastrointestinal Gastrointestinal: Denies abdominal pain, Denies change in bowel habits, Denies diarrhea, Reports nausea and Reports vomiting Genitourinary Genitourinary: Denies hematuria, Denies flank pain, Denies urinary incontinence and Denies urinary urgency Comments: Left-sided flank pain Musculoskeletal Musculoskeletal: Denies back pain, Denies muscle weakness, Denies neck pain, Denies numbness and Denies tingling Integumentary/Breasts Skin/Breast: Denies pruritus, Denies erythema, Denies rash and Denies wounds Neurologic Neurologic: Denies behavioral changes, Denies confusion, Denies dizziness, Denies frequent falls, Denies loss of vision, Denies numbness, Denies tingling and Denies weakness Psychiatric Psychiatric: Denies anxiety, Denies behavioral changes, Denies confusion, Denies depression, Denies homicidal ideation and Denies suicidal ideation Endocrine Endocrine: Denies fatigue, Denies flushing and Denies palpitations Hematologic/Lymphatic Hematologic/Lymphatic: Denies easy bruising Allergic/Immunologic Allergic/Immunologic: Denies urticaria, Denies throat swelling and Denies wheezing Patient History <Harini Soares PA-C - Last Filed: 11/24/21 20:14> Medical History (Updated 11/24/21 @ 17:44 by Harini Soares PA-C) No significant medical problems tobacco type: vaping alcohol intake frequency: 0-2 drinks per day Substance Use Type: does not use Exam <Harini Soares PA-C - Last Filed: 11/24/21 20:14> Narrative Exam Narrative: Const General:?cooperative, healthy appearing and comfortable [facility] Head:?normal to inspection Ears:?hearing grossly normal bilaterally Nose:?external nose normal Face and sinus:?normal facial exam and sinuses nontender Mouth:?oral mucosae normal Throat:?posterior oropharynx normal Eyes General:?appearance normal, both eyes and all related structures Neck Neck:?normal visual inspection and no lymphadenopathy noted Resp Effort & Inspection:?normal respiratory effort Auscultation:?clear to auscultation bilaterally Cardio Rate:?regular rate Rhythm:?regular rhythm GI Abdomen is soft, nondistended, nontender to palpation. Positive left-sided CVA tenderness. Patient's pain is elicited with twisting movements, movement of the trunk. No rashes. Neuro General:?patient alert, patient awake and patient oriented x3 Initial Vital Signs Initial Vital Signs: Vital Signs Temperature 98.6 F 11/24/21 13:59 Pulse Rate 69 11/24/21 13:59 Respiratory Rate 18 11/24/21 13:59 Blood Pressure 105/58 L 11/24/21 13:59 Pulse Oximetry 99 11/24/21 13:59 <Anna Ballesteros DO - Last Filed: 11/25/21 19:36> Initial Vital Signs Initial Vital Signs: Vital Signs Temperature 98.6 F 11/24/21 13:59 Pulse Rate 69 11/24/21 13:59 Respiratory Rate 18 11/24/21 13:59 Blood Pressure 105/58 L 11/24/21 13:59 Pulse Oximetry 99 11/24/21 13:59 Course <Harini Soares PA-C - Last Filed: 11/24/21 20:14> Orders Ordered: Discontinued Medications Acetaminophen (Acetaminophen 325 Mg Tablet) 975 mg PO NOW ONE Stop: 11/24/21 17:04 Last Admin: 11/24/21 17:08 Dose: 975 mg Documented by: CIRILO Sodium Chloride (Normal Saline 0.9%) 1,000 mls @ 1,000 mls/hr IV BOLUS ONE Stop: 11/24/21 16:35 Last Infusion: 11/24/21 17:06 Dose: 0 mls/hr Documented by: Admin: 11/24/21 15:54 Dose: 1,000 mls/hr Documented by: CIRILO Ketorolac Tromethamine (Ketorolac 30 Mg/Ml Vial) 15 mg IV NOW ONE Stop: 11/24/21 15:37 Last Admin: 11/24/21 15:53 Dose: 15 mg Documented by: CIRILO Lidocaine (Lidocaine Patch 1 Each Adh..Patch) 1 each TOP NOW ONE Stop: 11/24/21 16:54 Last Admin: 11/24/21 17:08 Dose: 1 each Documented by: CIRILO Ondansetron HCl (Ondansetron 4 Mg/2 Ml Inj) 4 mg IV NOW ONE Stop: 11/24/21 14:37 Last Admin: 11/24/21 14:55 Dose: 4 mg Documented by: CIRILO Vital Signs Vital signs: Vital Signs - 8 hr 11/24/21 13:59 11/24/21 17:56 Temperature 98.6 F Pulse Rate 69 76 Respiratory Rate 18 16 Blood Pressure 105/58 L 98/59 L Pulse Oximetry 99 99 <Anna Ballesteros DO - Last Filed: 11/25/21 19:36> Orders Ordered: Discontinued Medications Acetaminophen (Acetaminophen 325 Mg Tablet) 975 mg PO NOW ONE Stop: 11/24/21 17:04 Last Admin: 11/24/21 17:08 Dose: 975 mg Documented by: CIRILO Sodium Chloride (Normal Saline 0.9%) 1,000 mls @ 1,000 mls/hr IV BOLUS ONE Stop: 11/24/21 16:35 Last Infusion: 11/24/21 17:06 Dose: 0 mls/hr Documented by: Admin: 11/24/21 15:54 Dose: 1,000 mls/hr Documented by: CIRILO Ketorolac Tromethamine (Ketorolac 30 Mg/Ml Vial) 15 mg IV NOW ONE Stop: 11/24/21 15:37 Last Admin: 11/24/21 15:53 Dose: 15 mg Documented by: CIRILO Lidocaine (Lidocaine Patch 1 Each Adh..Patch) 1 each TOP NOW ONE Stop: 11/24/21 16:54 Last Admin: 11/24/21 17:08 Dose: 1 each Documented by: CIRILO Ondansetron HCl (Ondansetron 4 Mg/2 Ml Inj) 4 mg IV NOW ONE Stop: 11/24/21 14:37 Last Admin: 11/24/21 14:55 Dose: 4 mg Documented by: CIRILO Vital Signs Vital signs: Vital Signs - 8 hr 11/24/21 13:59 11/24/21 17:56 Temperature 98.6 F Pulse Rate 69 76 Respiratory Rate 18 16 Blood Pressure 105/58 L 98/59 L Pulse Oximetry 99 99 MDM - Female Genitourinary <Harini Soares PA-C - Last Filed: 11/24/21 20:14> Medical Records Attestation: I reviewed the patient's medical records. Lab Data Attestation: I reviewed the patient's lab results. Lab results narrative: 1.07 creatinine; creatinine improved to 0.9 after IV hydration Result diagrams: 11/24/21 14:41 11/24/21 17:04 Labs: Lab Results 11/24/21 11/24/21 11/24/21 Range/Units 14:41 14:41 14:41 WBC 5.9 (4.5-11.0) X10^3/uL RBC 4.25 (4.0-5.2) X10^6/uL Hgb 13.4 (12.0-16.0) g/dL Hct 39.1 (36-46) % MCV 92.0 (80-100) fL MCH 31.4 (26-34) PG MCHC 34.2 (30-36) % RDW 12.5 (11.6-14.8) % Plt Count 163 (150-400) X10^3/uL Neut % (Auto) 68.0 (50-75) % Lymph % (Auto) 22.4 L (25-40) % [place] % (Auto) 7.9 (3-14) % Eos % (Auto) 1.3 L (2-4) % Baso % (Auto) 0.4 (0-2) % Neut # (Auto) 4000 (9934-3760) /uL Lymph # (Auto) 1300 (5730-1805) /uL [place] # (Auto) 500 (0-900) /uL Eos # (Auto) 100 (0-450) /uL Baso # (Auto) 0 (0-100) /uL Sodium 134 L (137-145) mmol/L Potassium 4.0 (3.4-5.1) mmol/L Chloride 101 (98-107) mmol/L Carbon Dioxide 26 (22-32) mmol/L BUN 14 (7-17) mg/dL Creatinine 1.07 H (0.52-1.04) mg/dL Estimated GFR > 60 (>60) mL/min BUN/Creatinine Ratio 13.1 (6-22) Glucose 85 (70-100) mg/dL Lactate 0.7 (0.7-2.1) mmol/L Calcium 8.6 (8.4-10.2) mg/dL Total Bilirubin 0.3 (0.2-1.3) mg/dL AST 32 (14-36) IU/L ALT 17 (<35) IU/L Alkaline Phosphatase 58 (38-126) U/L Total Protein 7.2 (6.3-8.2) g/dL Albumin 4.3 (3.5-5.0) g/dL Globulin 2.9 (1.7-4.1) g/dL Albumin/Globulin Ratio 1.5 (1.0-2.8) Lipase (23-300) U/L 11/24/21 11/24/21 Range/Units 14:41 17:04 WBC (4.5-11.0) X10^3/uL RBC (4.0-5.2) X10^6/uL Hgb (12.0-16.0) g/dL Hct (36-46) % MCV (80-100) fL MCH (26-34) PG MCHC (30-36) % RDW (11.6-14.8) % Plt Count (150-400) X10^3/uL Neut % (Auto) (50-75) % Lymph % (Auto) (25-40) % [place] % (Auto) (3-14) % Eos % (Auto) (2-4) % Baso % (Auto) (0-2) % Neut # (Auto) (1827-5608) /uL Lymph # (Auto) (7589-2785) /uL [place] # (Auto) (0-900) /uL Eos # (Auto) (0-450) /uL Baso # (Auto) (0-100) /uL Sodium 136 L (137-145) mmol/L Potassium 4.3 (3.4-5.1) mmol/L Chloride 106 (98-107) mmol/L Carbon Dioxide 27 (22-32) mmol/L BUN 13 (7-17) mg/dL Creatinine 0.90 (0.52-1.04) mg/dL Estimated GFR > 60 (>60) mL/min BUN/Creatinine Ratio 14.4 (6-22) Glucose 84 (70-100) mg/dL Lactate (0.7-2.1) mmol/L Calcium 8.2 L (8.4-10.2) mg/dL Total Bilirubin 0.4 (0.2-1.3) mg/dL AST 40 H (14-36) IU/L ALT 17 (<35) IU/L Alkaline Phosphatase 61 (38-126) U/L Total Protein 6.9 (6.3-8.2) g/dL Albumin 4.1 (3.5-5.0) g/dL Globulin 2.8 (1.7-4.1) g/dL Albumin/Globulin Ratio 1.5 (1.0-2.8) Lipase 62 (23-300) U/L Point of Care Testing Test Results Negative Urine Dip Bedside Urine Glucose Negative Bedside Urine Bilirubin - Negative Bedside Urine Ketone - Negative Urine Specific [place] 1.01 Bedside Urine Occult Blood - Negative Bedside Urine pH 6.0 Bedside Urine Protein - Negative Bedside Urine Urobilinogen - Negative Bedside Urine Nitrite - Negative Bedside Urine Leukocytes - Negative Esterase Imaging Data CT scan - abdomen/pelvis: Radiologist's Impression: PROCEDURE:? CT ABDOMEN PELVIS WO CON ? INDICATIONS:? ? Nephrolitiasis ? TECHNIQUE:? Axial sections were acquired from the lung bases to the pubic symphysis.? Coronal and sagittal reformats were performed.? For radiation dose reduction, the following was used: ?automated exposure control, adjustment of mA and/or kV according to patient size.? ? COMPARISON:? [facility], CT, CT KIDNEY URETER BLADDER (KUB), 11/19/2021, 17:25.? [facility], CT, CT KUB, 08/08/2019, 12:46. ? FINDINGS:? Image quality:? Excellent.? ? Lung bases:? Unremarkable.? Small hiatal hernia. ? Heart:? No significant findings. ? URINARY: Right Kidney: ? No stones or hydronephrosis.? Right Ureter:? No hydroureter.? ? Left Kidney:? There is a 1 mm stone in the superior pole of the left kidney.? No hydronephrosis. Left Ureter:? No hydroureter.? ? Bladder:? Normal wall thickness. No stones. ? ? ? ABDOMEN: Liver:? Unremarkable.? ? Gallbladder:? Unremarkable.? ? Biliary ducts:? Unremarkable.? ? Pancreas:? Unremarkable.? ? Spleen:? Unremarkable.? ? Adrenal Glands:? Unremarkable.? ? ? Stomach and Bowel:? Stomach, small bowel loops, and colon are unremarkable.? There is a moderate amount of stool in colon. Peritoneum:? No abnormal intraperitoneal fluid.? No free air.? ? Ventral Wall: ? No hernia.? Abdominal Nodes:? No enlarged retroperitoneal or mesenteric lymph nodes.? Vessels:? Aorta and inferior vena cava are normal in size.? ? PELVIS: Pelvic Organs:? Uterus and ovaries are grossly normal.? There is an IUD.? ? Pelvic Nodes: Unremarkable. Miscellaneous: No inguinal hernias are seen. ? ? ? Bones:? Unremarkable. ? IMPRESSION:? ? 1. There is a 1 mm nonobstructive stone in the superior pole of the left kidney.? No hydronephrosis. 2. IUD in uterus. ? ? ? Dictated by: Pb Gomez M.D. on 11/24/2021 at 16:22 ? ? Approved by: Pb Gomez M.D. on 11/24/2021 at 16:30 ? MDM Narrative Medical decision making narrative: 26-year-old female with no significant past medical history presents to the ED with left-sided flank pain. Concern for UTI versus kidney stones versus musculoskeletal sprain/strain. Will obtain labs, UA, CT abdomen pelvis. Will treat symptoms with ketorolac, Zofran. Will Reassess. 1.07, other labs within normal limits. UA negative for UTI. CT negative for obstructing kidney stones or other acute findings. EZE likely due to dehydration. Will recheck after IV fluid bolus. Patient given Tylenol, lidocaine patch for pain. Creatinine improved to 0.9 after IV hydration. Patient discharged home with ED return precautions. Patient verbalized understanding. <Anna Ballesteros, DO - Last Filed: 11/25/21 19:36> Lab Data Labs: Lab Results 11/24/21 11/24/21 11/24/21 Range/Units 14:41 14:41 14:41 WBC 5.9 (4.5-11.0) X10^3/uL RBC 4.25 (4.0-5.2) X10^6/uL Hgb 13.4 (12.0-16.0) g/dL Hct 39.1 (36-46) % MCV 92.0 (80-100) fL MCH 31.4 (26-34) PG MCHC 34.2 (30-36) % RDW 12.5 (11.6-14.8) % Plt Count 163 (150-400) X10^3/uL Neut % (Auto) 68.0 (50-75) % Lymph % (Auto) 22.4 L (25-40) % [place] % (Auto) 7.9 (3-14) % Eos % (Auto) 1.3 L (2-4) % Baso % (Auto) 0.4 (0-2) % Neut # (Auto) 4000 (8716-4752) /uL Lymph # (Auto) 1300 (7127-6900) /uL [place] # (Auto) 500 (0-900) /uL Eos # (Auto) 100 (0-450) /uL Baso # (Auto) 0 (0-100) /uL Sodium 134 L (137-145) mmol/L Potassium 4.0 (3.4-5.1) mmol/L Chloride 101 (98-107) mmol/L Carbon Dioxide 26 (22-32) mmol/L BUN 14 (7-17) mg/dL Creatinine 1.07 H (0.52-1.04) mg/dL Estimated GFR > 60 (>60) mL/min BUN/Creatinine Ratio 13.1 (6-22) Glucose 85 (70-100) mg/dL Lactate 0.7 (0.7-2.1) mmol/L Calcium 8.6 (8.4-10.2) mg/dL Total Bilirubin 0.3 (0.2-1.3) mg/dL AST 32 (14-36) IU/L ALT 17 (<35) IU/L Alkaline Phosphatase 58 (38-126) U/L Total Protein 7.2 (6.3-8.2) g/dL Albumin 4.3 (3.5-5.0) g/dL Globulin 2.9 (1.7-4.1) g/dL Albumin/Globulin Ratio 1.5 (1.0-2.8) Lipase (23-300) U/L 11/24/21 11/24/21 Range/Units 14:41 17:04 WBC (4.5-11.0) X10^3/uL RBC (4.0-5.2) X10^6/uL Hgb (12.0-16.0) g/dL Hct (36-46) % MCV (80-100) fL MCH (26-34) PG MCHC (30-36) % RDW (11.6-14.8) % Plt Count (150-400) X10^3/uL Neut % (Auto) (50-75) % Lymph % (Auto) (25-40) % [place] % (Auto) (3-14) % Eos % (Auto) (2-4) % Baso % (Auto) (0-2) % Neut # (Auto) (6723-5115) /uL Lymph # (Auto) (1511-8408) /uL [place] # (Auto) (0-900) /uL Eos # (Auto) (0-450) /uL Baso # (Auto) (0-100) /uL Sodium 136 L (137-145) mmol/L Potassium 4.3 (3.4-5.1) mmol/L Chloride 106 (98-107) mmol/L Carbon Dioxide 27 (22-32) mmol/L BUN 13 (7-17) mg/dL Creatinine 0.90 (0.52-1.04) mg/dL Estimated GFR > 60 (>60) mL/min BUN/Creatinine Ratio 14.4 (6-22) Glucose 84 (70-100) mg/dL Lactate (0.7-2.1) mmol/L Calcium 8.2 L (8.4-10.2) mg/dL Total Bilirubin 0.4 (0.2-1.3) mg/dL AST 40 H (14-36) IU/L ALT 17 (<35) IU/L Alkaline Phosphatase 61 (38-126) U/L Total Protein 6.9 (6.3-8.2) g/dL Albumin 4.1 (3.5-5.0) g/dL Globulin 2.8 (1.7-4.1) g/dL Albumin/Globulin Ratio 1.5 (1.0-2.8) Lipase 62 (23-300) U/L Point of Care Testing Test Results Negative Urine Dip Bedside Urine Glucose Negative Bedside Urine Bilirubin - Negative Bedside Urine Ketone - Negative Urine Specific [place] 1.01 Bedside Urine Occult Blood - Negative Bedside Urine pH 6.0 Bedside Urine Protein - Negative Bedside Urine Urobilinogen - Negative Bedside Urine Nitrite - Negative Bedside Urine Leukocytes - Negative Esterase Discharge Plan Departure Patient Disposition: Home Clinical Impression: Flank pain Instructions: Thoracic Back Pain Activity Restrictions/Additional Instructions: You were evaluated in the ED today for flank pain. Your urine were normal. Your creatinine was elevated, which resolved with IV hydration. It was likely elevated due to dehydration. Your CT scan did not show any acute findings that might explain your symptoms. There was 1 1 mm stone in the superior pole of the kidney which is not obstructing, which would therefore not cause any pain. You may continue to take ibuprofen/Tylenol, use a lidocaine patch for your symptoms. Return to the ED if your symptoms worsen, you have uncontrollable nausea, vomiting, you are unable to keep down fluids. Prescriptions: No Action cephalexin 500 mg capsule 500 mg PO BID Qty: 10 0RF ondansetron 4 mg tablet,disintegrating 4 mg PO Q6H PRN (Reason: nausea and vomiting) Qty: 5 0RF sulfamethoxazole-trimethoprim [Bactrim DS] 800-160 mg tablet 1 tab PO BID 7 Days Qty: 14 0RF fluconazole 150 mg tablet 150 mg PO .q3da PRN (Reason: yeast infection) Qty: 2 0RF metronidazole 500 mg tablet 500 mg PO BID 7 Days Qty: 14 0RF oxycodone 5 mg capsule 5 mg PO DAILY Qty: 10 0RF Visit Report Forms: Patient Portal/API <Anna Ballesteros DO - Last Filed: 11/25/21 19:36> Cosign ED Attending Cosignature Attestation: I was available for consultation at all times. Patient chart was reviewed.
[2021-11-24] MEDS: LIDOCAINE PATCH 1 EACH ADH..PATCH TOP (17:08)
[2021-11-24] MEDS: ACETAMINOPHEN 325 MG TABLET 975 MG PO (17:08)
[2021-11-24 17:27] LABS: Alanine Aminotransferase 17 IU/L (<35); Albumin 4.1 g/dL (3.5-5.0); Albumin Globulin Ratio 1.5 (1.0-2.8); Alkaline Phosphatase 61 U/L (38-126); Aspartate Aminotransferase 40 IU/L (14-36); BUN Creatinine Ratio 14.4 (6-22); Bilirubin Total 0.4 mg/dL (0.2-1.3); Blood Urea Nitrogen 13 mg/dL (7-17); Calcium 8.2 mg/dL (8.4-10.2); Carbon Dioxide 27 mmol/L (22-32); Chloride 106 mmol/L (98-107); Estimated Glomerular Filt Rate > 60 mL/min (>60); Globulin 2.8 g/dL (1.7-4.1); Glucose 84 mg/dL (70-100); HEMOLYSIS 18 (0-50); Potassium 4.3 mmol/L (3.4-5.1); Sodium 136 mmol/L (137-145); Total Protein 6.9 g/dL (6.3-8.2)
[2021-11-24 17:56] VITALS: BP 98/59; PULSE 76; RESP 16; O2SAT 99
== END 2021-11-24 17:57 | disposition home or self-care (01) ==
PROVIDERS: Emergency Medicine; Emergency Provider Student in an Organized Health Care Education/Training Program
DX: R10.9 Unspecified abdominal pain (principal); R11.2 Nausea with vomiting, unspecified
CPT/HCPCS: 36415; 74176; 80053; 81003; 81025; 83605; 83690; 85025; 96361; 96374; 96375; 99284; J1885; J2405